=== PATIENT | female | born 2005 | race Caucasian/White ===

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

== ENCOUNTER 2024-04-06 19:34 | Emergency (ER) | payer SELFPAY ==
[~2024-04-06] VITALS: Ht 160 cm; Wt 69.4 kg
[~2024-04-06 19:34] MED LIST changes: +AUGMENTIN 875875 MG PO
[2024-04-06 22:00] LABS: BILIRUBIN Negative (Negative); BLOOD Trace-Intact (Negative); CLARITY Cloudy (Clear); COLOR Yellow (Yellow); GLUCOSE Negative (Negative); KETONE Negative (Negative); LEUKO ESTERASE 3+ (Negative); NITRITE Negative (Negative)
[2024-04-06 22:07] LABS: BACTERIA 2+; MUCOUS 1+; WBC TNTC wbc/hpf (0-5)
[2024-04-06] MEDS ORDERED: AZITHROMYCIN 250 MG TAB PO ONE (22:15)
== END 2024-04-06 22:42 | disposition home or self-care (01) ==
LOC: ED 19:34
PROVIDERS: Nurse Practitioner
DX: A60.04 Herpesviral vulvovaginitis (principal); Z20.2 Contact with and (suspected) exposure to infections with a predominantly sexual mode of transmission

== ENCOUNTER 2024-04-21 20:44 | Emergency (ER) | payer OTHER ==
[~2024-04-21] VITALS: Ht 160 cm; Wt 68.0 kg
[2024-04-21] MEDS ORDERED: VALACYCLOVIR500 M1 PO (21:04)
== END 2024-04-21 21:13 | disposition home or self-care (01) ==
LOC: ED 20:44
DX: A60.00 Herpesviral infection of urogenital system, unspecified (principal)